=== PATIENT | male | born 1970 | race Caucasian/White ===

== ENCOUNTER → 2018-01-25 07:40 | Outpatient (CLI) | payer BC, SELFPAY | PROVIDERS: PCP Internal Medicine Adolescent Medicine; Visit Provider Neurological Surgery | DX: R29.898 Other symptoms and signs involving the musculoskeletal system (principal) | CPT/HCPCS: 93005 ==

== ENCOUNTER → 2019-11-21 12:38 | Outpatient (CLI) | payer BC, SELFPAY ==
[2019-11-21 14:09] LABS: Coronavirus 19 IgG Antibody Negative (Negative); Coronavirus 19 IgM Antibody Negative (Negative)
== END ==
PROVIDERS: Visit Provider Internal Medicine Gastroenterology
DX: Z01.818 Encounter for other preprocedural examination (principal)
CPT/HCPCS: 36415; 86328

== ENCOUNTER 2019-11-22 08:48 | Day surgery (SDC) | payer BC, SELFPAY ==
[2019-11-19 11:43] VITALS: BMI 32.5
--- NOTE | 2019-11-20 10:01 | SUR.PREOP ---
11/20/2019 @ 1000--PHONE CALL MADE TO PATIENT. PATIENT UNDERSTANDS THAT LAB WORK AND COVID TESTING NEEDS TO BE COMPLETED @ 1200 ON 11/21/2019. PATIENT UNDERSTANDS IF LAB WORK AND COVID-19 TESTS ARE NOT COMPLETED BY 12PM ON THAT DATE, THE SURGERY SCHEDULED WILL BE CANCELLED AND RESCHEDULED FOR ANOTHER TIME.
[2019-11-22] VITALS (7 sets, daily range): BP systolic 100–128; BP diastolic 63–76; PULSE 52–62; RESP 16–18; TEMP 36.3–36.6; O2SAT 93–98
--- NOTE | 2019-11-22 10:33 | P.PCN_ITS ---
[facility] Procedure Note Procedure Note:: Upper Endoscopy Procedure Report: Esophagogastroduodenoscopy with cold biopsies and TTS balloon dilation Endoscopost: Dawood Milan II, MD Referring Physician: Dandre Nails M.D. Date of Procedure: November 22, 2019 Equipment: Olympus GIF 180 standard upper endoscope Sedation: MAC sedation Indications: Mr. Howard is a 49-year-old gentleman with a history of eosinophilic esophagitis. He did have spontaneous perforation secondary to a food impaction and was admitted to the hospital at the [facility] in June 2017. He did have a partially covered esophageal stent which was removed in July 2017. He had an EGD with me in August 2018 and there was corrugation and furrowing consistent with eosinophilic esophagitis. I did dilate the esophagus at that point to 18 mm. He did have some fibrosis from the prior stent and perforation. Overall he is doing well on PPI therapy. The patient is here for repeat endoscopy. The patient had negative RAST food allergy. Procedure: Prior to the procedure, a history and physical exam was performed, and patient's medications and allergies were reviewed. The risks, benefits and alternatives of the sedation and procedure were discussed with the patient. All questions were answered and informed consent was obtained. The patient was brought to the procedure room. Patient identification and proposed procedure were verified by the physician and the nurse. The patient was placed in a left lateral decubitus position and the scope was passed under direct vision. Throughout the procedure, the patient's blood pressure, pulse, and oxygen saturations were monitored continuously. The upper GI endoscopy was accomplished without di fficulty. The patient tolerated the procedure well. Findings: The scope was passed directly into the upper esophagus and advanced to the third portion of the duodenum. The post bulbar duodenum and duodenal bulb were normal with normal mucosa and conniventes. The scope was withdrawn through a normal duodenal bulb and pylorus into the stomach. There was mild reactive gastropathy of the antrum. There was some bile reflux. The remainder of the antrum, body and fundus of the stomach were grossly normal. Upon retroflexion there was no hiatal hernia. The scope was then withdrawn into the esophagus. There was corrugation and furrowing. There was a distal ringlike stricture. There was also esophageal fibrosis and at least 2 areas of pseudopolyp (very small polyp) which was biopsied and felt to be related to the prior esophageal stent. The distal esophageal ring like stricture was dilated to 60 Hungarian/20 mm with a TTS hydrostatic balloon. Impression: 1. Eosinophilic esophagitis status post dilation to 20 mm with some esophageal fibrosis related to prior perforation and stent Plan: I will follow-up the biopsies. The patient is clinically doing very well. I will proceed with screening colonoscopy.
--- NOTE | 2019-11-22 10:53 | P.PCN_ITS ---
[facility] Procedure Note Procedure Note:: Colonoscopy Procedure Report: Colonoscopy with cold snare polypectomy Endoscopist: Dawood Milan II, MD Referring physician: Dandre Nails M.D. Date of Procedure: November 22, 2019 Equipment: Olympus 180 variable stiffness pediatric colonoscope Sedation: MAC sedation Indication: Mr. Howard is a 49-year-old gentleman who is here for initial screening colonoscopy. He reports no abdominal pain, weight loss, change in his bowel habits or rectal bleeding. He reports no family history of colon cancer. Procedure: Prior to the procedure, a history and physical exam was performed, and patient's medications and allergies were reviewed. The risks, benefits and alternatives of the sedation and procedure were discussed with the patient. All questions were answered and informed consent was obtained. The patient was brought to the procedure room. Patient identification and proposed procedure were verified by the physician and the nurse. The patient was placed in a left lateral decubitus position and the scope was passed under direct vision. Throughout the procedure, the patient's blood pressure, pulse, and oxygen saturations were monitored continuously. The colonoscopy was accomplished without difficulty. The patient tolerated the procedure well. Findings: On digital rectal examination there was normal rectal tone. There were no external hemorrhoids. The prostate was 2+, smooth, soft, symmetric without nodules. The colonoscope was introduced through the anal canal to the rectum and advanced to the cecum. The ileocecal valve and appendiceal orifice were identified. The scope was advanced a short distance into the ileum which appeared grossly normal. The scope was then withdrawn into the colon. The cecum and ascending colon were normal. There was a 3 to 4 mm polyp in the transverse colon removed via cold snare polypectomy. The remainder of the descending, sigmoid and rectum were normal. There were no other mucosal abnormalities identified. Upon retroflexion within the rectum there were grade 1 internal hemorrhoids.The preparation was excellent throughout with Beaumont Preparation Score of 9. The cecal time was 10 minutes. Impression: 1. Diminutive transverse colon polyp Plan: I will follow up the polyp pathology and recommend repeat colonoscopy again in 7-10 years based upon the polyp histology. I would encourage fiber supplementation on a long-term daily maintenance basis.
== END 2019-11-22 11:43 | disposition home or self-care (01) ==
PROVIDERS: PCP Internal Medicine Adolescent Medicine; Visit Provider Internal Medicine Gastroenterology
PROC: 0DJ08ZZ Inspection of Upper Intestinal Tract, Via Natural or Artificial Opening Endoscopic (ICD-10-PCS; CPT 43235; principal; 2019-11-22 10:00)
DX: Z12.11 Encounter for screening for malignant neoplasm of colon (principal); K63.5 Polyp of colon; K64.0 First degree hemorrhoids; K20.0 Eosinophilic esophagitis; K22.2 Esophageal obstruction; K22.8 Other specified diseases of esophagus; Z87.19 Personal history of other diseases of the digestive system; I10 Essential (primary) hypertension; Z79.899 Other long term (current) drug therapy
CPT/HCPCS: 45385; 43239; 43249; C1726

== ENCOUNTER 2024-09-11 08:54 | Day surgery (SDC) | payer BC, SELFPAY ==
[2024-09-09 16:37] VITALS: BMI 32.1
[2024-09-11 09:47] VITALS: BP 153/76; PULSE 78; RESP 16; TEMP 36.7; O2SAT 100
[2024-09-11] MEDS: LACTATED RINGERS 1000ML 1,000 ML 50 ML IV (09:55)
--- NOTE | 2024-09-11 10:41 | EXP.ANES.CKL ---
[facility] Disclaimer: The information contained in this section may have been updated after the patient was seen, as this information can be updated by other users. Medical History History of gastroesophageal reflux (GERD) Esophageal tear Surgical History History of surgery No significant past surgical history Family History Other Stroke Social History Smoking Status: Never smoker alcohol intake: never substance use type: denies use current occupational status: employed Travel in the last 8 weeks: None housing: house caffeine: Yes Have you lived/traveled outside [place] in past 30 days?: No Contact w/someone who lives/traveled outside US past 30 days?: No Exposure to someone with infectious disease in past 14 days?: No Do you have a fever (greater than 100.4 F or 38 C)?: No Have you tested positive for COVID-19: No Exposed to someone with COVID-19 in past 14 days?: No Do you have a sore throat?: No Do you have a cough?: No Do you have any weakness?: No Are you experiencing any nausea/vomitting?: No Do you have any diarrhea?: No Are you experiencing any unusual bleeding?: No Do you have any muscle aches/pain?: No Do you have any abdominal pain?: No Are you experiencing loss of taste or smell?: No [facility] Anesthesia Checklist Patient Identification Patient Identification: Arm Band and Verbal (Name & ) Structural Data Admitted From: Home Planned Operative Procedure/s: EGD Consent for Planned Operative Procedure(s) Verified: Yes Verified Documents: Surgical Consent and History and Physical NPO Status Verified Time NPO: 00:00 Additional verifications Anesthesia Reactions: No Airway Assessment Mallampati Score:: Class III Neurological Assessment Level of Consciousness: Awake, Alert and Appropriate Hx Seizures: No Numbness or tingling in extremities: No Anesthesia Plan Anesthesia Risk discussed: Yes Anesthesia Plan: Verified ASA Class: II Anesthesia Type: MAC
--- NOTE | 2024-09-11 10:47 | P.HP_ITS ---
History of Present Illness *Admission Date: 09/11/24 *Reason for visit:: Eosinophilic esophagitis/chronic cough/dysphagia *History of present illness: Mr. Tena is a 54-year-old gentleman who is here for diagnostic upper endoscopy secondary to chronic cough, dysphagia and history of eosinophilic esophagitis. The examination is deemed medically necessary for diagnostic EGD. The patient has been seen, interviewed and examined prior to the procedure by both myself and the anesthesia provider. [facility] Disclaimer: The information contained in this section may have been updated after the patient was seen, as this information can be updated by other users. Medical History History of gastroesophageal reflux (GERD) Esophageal tear Surgical History History of surgery No significant past surgical history Family History Other Stroke Social History Smoking Status: Never smoker alcohol intake: never substance use type: denies use current occupational status: employed Travel in the last 8 weeks: None housing: house caffeine: Yes Have you lived/traveled outside US in past 30 days?: No Contact w/someone who lives/traveled outside [place] past 30 days?: No Exposure to someone with infectious disease in past 14 days?: No Do you have a fever (greater than 100.4 F or 38 C)?: No Have you tested positive for COVID-19: No Exposed to someone with COVID-19 in past 14 days?: No Do you have a sore throat?: No Do you have a cough?: No Do you have any weakness?: No Are you experiencing any nausea/vomitting?: No Do you have any diarrhea?: No Are you experiencing any unusual bleeding?: No Do you have any muscle aches/pain?: No Do you have any abdominal pain?: No Are you experiencing loss of taste or smell?: No Other Medical History Have you received the Flu Vaccine for this season: No Have you received the Pneumonia Vaccine: No Review of Systems Review of Systems Review of systems (narrative): Negative *Cardiovascular Comments: Negative *Gastrointestinal Comments: Negative *Genitourinary Comments: Negative *Musculoskeletal Comments: Negative *Neurologic Comments: Negative Meds Home Medications and Allergies Home Medications ?Medication ?Instructions ?Recorded ?Confirmed ?Type pantoprazole 40 mg tablet,delayed 40 mg PO DAILY 09/09/24 09/11/24 History release New Prescriptions to Start Prescriptions: Allergies Allergy/AdvReac Type Severity Reaction Status Date / Time No Known Allergies Allergy Verified 09/11/24 09:46 Exam Data for Last 24 hours Vital signs and Labs for Last 24 Hours: Temp Pulse Resp BP Pulse Ox O2 Del Method 98.0 F 78 16 153/76 H 100 Room Air 09/11/24 09:47 09/11/24 09:47 09/11/24 09:47 09/11/24 09:47 09/11/24 09:47 09/11/24 09:47 I & O for Last 24 hours: Intake & Output 09/08/24 09/09/24 09/10/24 09/11/24 23:59 23:59 23:59 23:59 Weight 218 lb *Routine HEENT Exam Head: Present normocephalic Eye: Present EOMI and PERRL ENT: Present mucous membranes moist *Routine Neck Exam Neck: Present supple *Routine Respiratory Exam Respiratory: Present CTA bilaterally *Routine Cardiovascular Exam Cardiovascular: Present RRR *Routine Abdominal Exam Abdominal: Present soft and normoactive bowel sounds; Absent tenderness *Routine Rectal Exam Rectal:: deferred *Routine Genitalia Exam Genitalia:: deferred *Routine Extremities Exam Extremities: Absent cyanosis, clubbing or edema *Routine Skin Exam Skin: Present warm; Absent rash *Routine Neurological Exam Neurological: Present alert and oriented X3 Assessment and Plan *Assessment and plan (1) Chronic cough: Status: Acute Category: Medical Code(s): R05.3 - Chronic cough (2) Dysphagia: Status: Acute Category: Medical Code(s): R13.10 - Dysphagia, unspecified (3) Eosinophilic esophagitis: Status: Acute Category: Medical Code(s): K20.0 - Eosinophilic esophagitis Plan A/P: 1. Chronic cough and dysphagia with history of eosinophilic esophagitis is the preprocedural diagnosis. The patient will be anesthetized/sedated using MAC sedation. The patient has been seen and examined. Cardiac and lung assessment prior to the examination is stable. Proceed with planned diagnostic upper endoscopy
--- NOTE | 2024-09-11 10:55 | HMH.PROCNOTE ---
[facility] Procedure Note Date: 09/11/24 Time: 11:12 Procedure Note:: Upper Endoscopy Procedure Report: Esophagogastroduodenoscopy with cold biopsies and TTS balloon dilation Endoscopost: Dawood Milan II, MD Referring Physician: Joanna Salinas MD, [address] [place] [address] Date of Procedure: September 11, 2024 Equipment: Olympus GIF 190 standard upper endoscope Sedation: MAC sedation Indications: Mr. Howard is a 54-year-old gentleman who is here for further evaluation of his chronic cough and dysphagia. He does have a former history of eosinophilic esophagitis and had spontaneous esophageal perforation secondary to a food impaction in 2018. He did have a partially covered esophageal stent placed at that time and removed in July 2017. He did see me for upper endoscopy in August 2018 and had evidence of eosinophilic esophagitis with distal ring dilated to 18 mm. He has had intermittent chronic coughing over the last several months. He also has had some intermittent dysphagia. He has been on pantoprazole since 2018. He reports no allergic sinusitis, perennial allergies or asthma. Procedure: Prior to the procedure, a history and physical exam was performed, and patient's medications and allergies were reviewed. The risks, benefits and alternatives of the sedation and procedure were discussed with the patient. All questions were answered and informed consent was obtained. The patient was brought to the procedure room. Patient identification and proposed procedure were verified by the physician and the nurse. The patient was placed in a left lateral decubitus position and the scope was passed under direct vision. Throughout the procedure, the patient's blood pressure, pulse, and oxygen saturations were monitored continuously. The upper GI endoscopy was accomplished without difficulty. The patient tolerated the procedure well. Findings: The scope was passed directly into the upper esophagus and advanced to the third portion of the duodenum. The post bulbar duodenum and duodenal bulb were normal with normal mucosa and conniventes. The scope was withdrawn through a normal duodenal bulb and pylorus into the stomach. The antrum body and fundus of the stomach are grossly normal. There was a fundic gland polyp in the proximal body of the stomach. Upon retroflexion there was a very small sliding 1 to 2 cm hiatal hernia. The scope was then withdrawn into the esophagus. There was some corrugation but no furrowing or mucosal exudates. There was some mid esophageal fibrosis and area deemed the probable site of prior esophageal rent/perforation. Cold biopsies were taken from the distal and proximal esophagus to rule out active eosinophilic esophagitis. The entire esophagus was dilated to 18 mm/54 Luxembourgish with a TTS hydrostatic balloon. There was no evidence of reflux esophagitis or Maldonado's or inlet patch. Impression: 1. 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 Very small sliding 1 to 2 cm hiatal hernia Plan: I will discuss the findings with the patient and family. If there is evidence of active eosinophilic esophagitis, I would recommend Dupixent. Dupixent is the first treatment of its kind for the treatment of eosinophilic esophagitis (EOE). Eosinophils are inflammatory cells that migrate to areas that are exposed to allergens and primarily food allergens. This treatment targets and markedly reduces the migration of the eosinophils. Dupixent is a FDA treatment specifically for EOE. It has been shown to be the most effective long-term therapy for eosinophilic esophagitis as well as other allergy mediated (eosinophilic) conditions (i.e. sinusitis, asthma). This effectively controls the symptoms associated with EOE (i.e. swallowing difficulty) and would allow you to eat a broader range of foods without worrying about the consequences of these food allergies. It may also prevent fibrostenosis and alter the natural history of EOE.
[2024-09-11 10:57] VITALS: O2SAT 97
[2024-09-11 11:11] VITALS: BP 120/80; PULSE 87; RESP 16; TEMP 36.9; O2SAT 93
[2024-09-11 11:21] VITALS: BP 123/81; PULSE 84; RESP 16; O2SAT 94
[2024-09-11 11:31] VITALS: BP 128/74; PULSE 83; RESP 16; O2SAT 95
[2024-09-11 11:41] VITALS: BP 136/87; PULSE 73; RESP 16; O2SAT 96
== END 2024-09-11 11:42 | disposition home or self-care (01) ==
PROVIDERS: Visit Provider Internal Medicine Gastroenterology
PROC: 0DJ08ZZ Inspection of Upper Intestinal Tract, Via Natural or Artificial Opening Endoscopic (ICD-10-PCS; CPT 43239; principal; 2024-09-11 10:30)
DX: K31.7 Polyp of stomach and duodenum (principal); K44.9 Diaphragmatic hernia without obstruction or gangrene; K22.89 Other specified disease of esophagus; R05.3 Chronic cough; R13.10 Dysphagia, unspecified; K20.0 Eosinophilic esophagitis
CPT/HCPCS: 43239; 43249; C1726; J7120